=== PATIENT | female | born 1945 ===

== ENCOUNTER 2020-06-22 05:50 | Day surgery (SDC) | payer OTHER ==
[~2020-06-22 05:50] MED LIST: LIPITOR PO; SYNTHROID88 MCG PO
== END 2020-06-22 15:45 | disposition home or self-care (01) ==
LOC: CIR.AMB 05:50
PROVIDERS: ATTEND Orthopaedic Surgery
DX: M75.112 Incomplete rotator cuff tear or rupture of left shoulder, not specified as traumatic (principal); Z20.822 Contact with and (suspected) exposure to COVID-19; M75.22 Bicipital tendinitis, left shoulder

== ENCOUNTER 2020-08-05 09:30 | Outpatient (CLI) | payer OTHER | END 2020-08-05 09:39 | disposition home or self-care (01) | LOC: RAD 09:30 | PROVIDERS: ATTEND Orthopaedic Surgery | DX: M25.511 Pain in right shoulder (principal); M25.512 Pain in left shoulder ==